=== PATIENT | female | born 1985 | race Caucasian/White ===

== ENCOUNTER 2017-01-28 19:48 | Emergency (ER) | payer OTHER ==
--- NOTE | 2017-01-28 20:47 | ER Document Report ---
ED Medical Screen (RME) - General Mode of Arrival: Ambulatory Information source: Patient TRAVEL OUTSIDE OF THE [place] IN LAST 30 DAYS: No <TACO PAREDES - Last Filed: 01/28/17 20:52> <NAMRATA BROCK - Last Filed: 01/28/17 21:08> <MARIAM TAYLOR - Last Filed: 01/28/17 21:10> - General Chief Complaint: Swelling of Lower Extremity Stated Complaint: LEFT LEG SWELLING Time Seen by Provider: 01/28/17 20:06 Notes: Patient is a 31 year old female with a history of SVT and blood clots reports to the emergency complaining of bilateral leg swelling. Patient states she had a recent noticeable episode of SVT. Patient also states that she is having sharp back pain. Patient states that she has recently taken a road trip to [place]. I have greeted and performed a rapid initial assessment of this patient. A comprehensive ED assessment and evaluation of the patient, analysis of test results and completion of the medical decision making process will be conducted by additional ED providers. (TACO PAREDES) - Related Data Allergies/Adverse Reactions: metronidazole [From Flagyl] Adverse Reaction (Intermediate, Verified 09/17/12 16 :08) rash Metronidazole HCl [From Flagyl] Adverse Reaction (Intermediate, Verified 16:08) rash cillins Allergy (Severe, Uncoded 09/17/12 16:08) swelling Past Medical History - Social History Chew tobacco use (# tins/day): No Frequency of alcohol use: None Drug Abuse: None Renal/ Medical History: Reports: Hx Ovarian Cysts. Denies: Hx Peritoneal Dialysis Past Surgical History: Reports: Hx Cholecystectomy, Hx Gynecologic Surgery - L oopherectomy --due to cyst 11.5 cm with ovarian torsion - Immunizations Immunizations up to date: Yes Hx Diphtheria, Pertussis, Tetanus Vaccination: Yes <TACO PAREDES - Last Filed: 01/28/17 20:52> - Past Medical History Cardiac Medical History: Reports: Hx DVT Denies: Hx Pulmonary Embolism <MARIAM TAYLOR - Last Filed: 01/28/17 21:10> Physical Exam <TACO PAREDES - Last Filed: 01/28/17 20:52> <NAMRATA BROCK - Last Filed: 01/28/17 21:08> <MARIAM TAYLOR - Last Filed: 01/28/17 21:10> - Vital signs Vitals: Temp Pulse Resp BP Pulse Ox 98.8 F 94 20 139/100 H 100 01/28/17 20:00 01/28/17 20:00 01/28/17 20:00 01/28/17 20:00 01/28/17 20:00 - Notes Notes: GENERAL: Alert, interacts well. No acute distress. LUNGS: Clear to auscultation bilaterally, no wheezes, rales, or rhonchi. No respiratory distress. HEART: Regular rate and rhythm. No murmurs, gallops, or rubs. EXTREMITIES: Left leg has 1+ pitting edema and is more swollen than the right. No exudate. (TACO PAREDES) Course - Laboratory Result Diagrams: 01/28/17 20:15 01/28/17 20:15 <TACO PAREDES - Last Filed: 01/28/17 20:52> - Laboratory Result Diagrams: 01/28/17 20:15 01/28/17 20:15 <NAMRATA BROCK - Last Filed: 01/28/17 21:08> - Laboratory Result Diagrams: 01/28/17 20:15 01/28/17 20:15 <MARIAM TAYLOR - Last Filed: 01/28/17 21:10> - Vital Signs Vital signs: Temp Pulse Resp BP Pulse Ox 98.8 F 94 20 139/100 H 100 01/28/17 20:00 01/28/17 20:00 01/28/17 20:00 01/28/17 20:00 01/28/17 20:00 - Laboratory Laboratory results interpreted by me: 01/28/17 20:15 Urine Blood LARGE H Ur Leukocyte Esterase TRACE H Scribe Documentation - Scribe Written by Sharad:: Sharad Hinson, 01/28/2017 20:55 acting as scribe for :: Sruthi <TCAO PAREDES - Last Filed: 01/28/17 20:52>
[2017-01-28 21:00] LABS: ABSOLUTE BASOPHILS # (AUTO) 0.1 10^3/uL (0.0-0.2); ABSOLUTE EOSINOPHILS # (AUTO) 0.3 10^3/uL (0.0-0.6); ABSOLUTE LYMPHOCYTES (AUTO) 3.5 10^3/uL (0.5-4.7); ABSOLUTE MONOCYTES (AUTO) 0.5 10^3/uL (0.1-1.4); ABSOLUTE NEUT (AUTO) 5.4 10^3/uL (1.7-8.2); BASOPHILS % (AUTO) 0.5 % (0-2); EOSINOPHILS % (AUTO) 2.8 % (0-6); HEMATOCRIT 36.9 % (36.0-47.0); HEMOGLOBIN 12.2 g/dL (12.0-15.5); HGB HCT DIFFERENCE -0.3; LYMPHOCYTES % (AUTO) 35.4 % (13-45); MEAN CORPUSCULAR HEMOGLOBIN 27.3 pg (27.0-33.4); MEAN CORPUSCULAR HGB CONC 33.2 g/dL (32.0-36.0); MEAN CORPUSCULAR VOLUME 82 fl (80-97); MONOCYTES % (AUTO) 5.6 % (3-13); RED BLOOD COUNT 4.47 10^6/uL (3.72-5.28); RED CELL DISTRIBUTION WIDTH 14.3 % (11.5-14.0); SEGMENTED NEUTROPHILS % (AUTO) 55.7 % (42-78); WHITE BLOOD COUNT 9.8 10^3/uL (4.0-10.5)
[2017-01-28 21:08] LABS: APPEARANCE,URINE SLIGHTLY-CLOUDY; BILIRUBIN,URINE NEGATIVE (NEGATIVE); GLUCOSE, URINE NEGATIVE (NEGATIVE); KETONES,URINE NEGATIVE (NEGATIVE); LEUKOCYTE ESTERASE,URINE TRACE (NEGATIVE); NITRITE,URINE NEGATIVE (NEGATIVE); PROTEIN,URINE NEGATIVE (NEGATIVE); URINE SPECIFIC GRAVITY 1.019; UROBILINOGEN,URINE NEGATIVE mg/dL (<2.0)
[2017-01-28 21:16] LABS: PROTHROMBIN TIME 11.5 SEC (11.4-15.4)
[2017-01-28 21:18] LABS: ALANINE AMINOTRANSFERASE 59 U/L (9-52); ALKALINE PHOSPHATASE 101 U/L (38-126); ANION GAP 11 (5-19); ASPARTATE AMINO TRANSFERASE 32 U/L (14-36); BILIRUBIN,DIRECT 0.1 mg/dL (0.0-0.4); BILIRUBIN,TOTAL 0.1 mg/dL (0.2-1.3); BLOOD UREA NITROGEN 7 mg/dL (7-20); CALCIUM 9.5 mg/dL (8.4-10.2); CARBON DIOXIDE 26 mmol/L (22-30); CHLORIDE 103 mmol/L (98-107); CREATININE RESULT 0.81 mg/dL (0.52-1.25); GLUCOSE 92 mg/dL (75-110); POTASSIUM 3.9 mmol/L (3.6-5.0); SODIUM 139.9 mmol/L (137-145); TOTAL PROTEIN 6.6 g/dL (6.3-8.2)
--- NOTE | 2017-01-28 21:20 | RADIOLOGY REPORT (SQ) ---
EXAM DESCRIPTION: CTA CHEST COMPLETED DATE/TIME: 01/28/2017 8:53 pm REASON FOR STUDY: SOB, h/o DVT, chest pain, recent [address] COMPARISON: None. TECHNIQUE: CT scan of the chest performed using helical scanning technique with dynamic intravenous contrast injection. Images reviewed with lung, soft tissue and bone windows. Reconstructed coronal and sagittal MPR images reviewed. Additional 3 dimensional post-processing performed to develop Maximal Intensity Projection images (VA P). All images stored on PACS. All CT scanners at this facility use dose modulation, iterative reconstruction, and/or weight based d osing when appropriate to reduce radiation dose to as low as reasonably achievable (ALARA). [facility]: Dose Right [facility]: CareDose [facility]: Dose Right [facility]: Teradose 4D [facility]: NaHere CONTRAST TYPE AND DOSE: contrast/concentration: Isovue 370.00 mg/ml; Total Contrast Delivered: 80.0 ml; Total Saline Delivered: 50.0 ml Contrast bolus optimized for the pulmonary arteries. Not diagnostic for the aorta. RENAL FUNCTION: None required. The patient is less than 50 years old. RADIATION DOSE: CT Rad equipment meets quality standard of care and radiation dose reduction techniq ues were employed. CTDIvol: 9.9 - 18.6 mGy. DLP: 749 mGy-cm. . LIMITATIONS: None. FINDINGS: LUNGS AND PLEURA: No masses, infiltrates, pneumothorax. No pleural effusions, calcificati ons. AORTA AND GREAT VESSELS: No aneurysm. Contrast bolus not optimized for the aorta. HEART: No pericardial effusion. No significant coronary artery calcifications. PULMONARY ARTERIES: No emboli visualized in the main pulmonary arteries or the segmental branches. HILAR AND MEDIASTINAL STRUCTURES: No identified masses or abnormal nodes. HARDWARE: None in the chest. UPPER ABDOMEN: No significant findings. Limited exam. THYROID AND OTHER SOFT TISSUES: No masses. No adenopathy. BONES: No acute or significant finding. 3D MIPS: Confirm above findings. OTHER: No other significant finding. IMPRESSION: NORMAL CTA OF THE CHEST. NO PULMONARY EMBOLI. COMMENT: Quality ID # [id number]: Final reports with documentation of one or more dose reduction techniques (e.g., Automated exposure control, adjustment of the mA and/or kV according to patient size, use of iterative reconstruction technique) TECHNICAL DOCUMENTATION: JOB ID: [id number] [place]-72 2010 [employer]- All Rights Reserved
--- NOTE | 2017-01-28 21:24 | ER Document Report ---
ED Extremity Problem, Lower - General Mode of Arrival: Ambulatory Information source: Patient TRAVEL OUTSIDE OF THE [place] IN LAST 30 DAYS: No - HPI Patient complains to provider of: Swelling Location: Leg - bilateral Occurred: This evening Associated symptoms: Other - see notes above <SEBLE FLORES - Last Filed: 01/28/17 21:29> <NAMRATA BROCK - Last Filed: 01/28/17 22:21> - General Chief Complaint: Swelling of Lower Extremity Stated Complaint: LEFT LEG SWELLING Time Seen by Provider: 01/28/17 20:06 Notes: 31 year old female with history of SVT presents to the ED complaining of bilateral leg swelling and sharp left scapular pain which wraps to the front that started earlier today. 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 Patient reports that she had an episode of left leg swelling 'many years ago' [facility]. Patient was on control at the time and is currently still on control. Patient states that she was in the hospital for 2 days and reports that the clot "passed" and was discharged home with ibuprofen and no blood thinning medications. Patient reports to having frequent unnoticeable SVT episodes, but states that she has had 3 noticeable episodes recently. Patient is additionally complaining of left leg numbness and tingling. Patient reports that she feels like stretching will help the scapular pain, but when she does she achieves no relief. No relief with breathing either. Patient states that her scapular pain is better than earlier, but still is uncomfortable. Patient is on 100 mg Atenolol daily and takes Metoprolol as needed. (SEBLE FLORES) - Related Data Allergies/Adverse Reactions: metronidazole [From Flagyl] Adverse Reaction (Intermediate, Verified 09/17/12 16 :08) rash Metronidazole HCl [From Flagyl] Adverse Reaction (Intermediate, Verified 16:08) rash cillins Allergy (Severe, Uncoded 09/17/12 16:08) swelling Past Medical History - General Information source: Patient - Social History Smoking Status: Never Smoker Chew tobacco use (# tins/day): No Frequency of alcohol use: None Drug Abuse: None Family History: Reviewed & Not Pertinent Patient has suicidal ideation: No Patient has homicidal ideation: No - Past Medical History Cardiac Medical History: Reports: Other - SVT Renal/ Medical History: Reports: Hx Ovarian Cysts. Denies: Hx Peritoneal Dialysis Past Surgical History: Reports: Hx Cholecystectomy, Hx Gynecologic Surgery - L oopherectomy --due to cyst 11.5 cm with ovarian torsion - Immunizations Immunizations up to date: Yes Hx Diphtheria, Pertussis, Tetanus Vaccination: Yes <SEBLE FLORES - Last Filed: 01/28/17 21:29> Review of Systems - Review of Systems Constitutional: No symptoms reported EENT: No symptoms reported Cardiovascular: No symptoms reported Respiratory: No symptoms reported Gastrointestinal: No symptoms reported Genitourinary: No symptoms reported Female Genitourinary: No symptoms reported Musculoskeletal: See HPI, Back pain - left scapular pain, Leg swelling - bilateral, Ankle swelling - bilateral Skin: No symptoms reported Hematologic/Lymphatic: No symptoms reported Neurological/Psychological: No symptoms reported -: Yes All other systems reviewed and negative <SEBLE FLORES - Last Filed: 01/28/17 21:29> Physical Exam - General General appearance: Alert In distress: None - HEENT Head: Normocephalic, Atraumatic Eyes: Normal Extraocular movements intact: Yes Pupils: PERRL - Respiratory Respiratory status: No respiratory distress Breath sounds: Normal - Cardiovascular Rhythm: Regular Heart sounds: Normal auscultation - Abdominal Inspection: Obese - Back Back: Normal, Nontender - Left scapular muscles and medial edge of scapula does not reproduce the patient's pain. - Extremities General upper extremity: Normal inspection, Normal strength General lower extremity: Edema - bilateral lower extremities including ankles, Other - calf non-tender. No: Normal inspection Calf: Normal - not firm, Nontender - Neurological Neuro grossly intact: Yes - Psychological Associated symptoms: Normal affect, Normal mood - Skin Skin Temperature: Warm Skin Moisture: Dry Skin Color: Normal <SEBLE FLORES - Last Filed: 01/28/17 21:29> - Vital signs Vitals: Temp Pulse Resp BP Pulse Ox 98.8 F 94 20 139/100 H 100 01/28/17 20:00 01/28/17 20:00 01/28/17 20:00 01/28/17 20:00 01/28/17 20:00 Course - Laboratory Result Diagrams: 01/28/17 20:15 01/28/17 20:15 <SEBLE FLORES - Last Filed: 01/28/17 21:29> - Laboratory Result Diagrams: 01/28/17 20:15 01/28/17 20:15 - Diagnostic Test Radiology reviewed: Image reviewed, Reports reviewed - CTA of the chest is negative for pulmonary emboli. Bilateral venous Dopplers are negative for DVT. - EKG Interpretation by Me EKG shows normal: Sinus rhythm, [place], Intervals, QRS Complexes, ST-T Waves Rate: Normal - 89 Rhythm: NSR [place]/QRS: Left axis deviation When compared to previous EKG there are: Previous EKG unavailable <NAMRATA BROCK - Last Filed: 01/28/17 22:21> - Vital Signs Vital signs: Temp Pulse Resp BP Pulse Ox 98.8 F 86 20 139/100 H 100 01/28/17 20:00 01/28/17 21:30 01/28/17 20:00 01/28/17 20:00 01/28/17 20:00 - Laboratory Laboratory results interpreted by me: 01/28/17 01/28/17 01/28/17 20:15 20:15 20:15 RDW 14.3 H Total Bilirubin 0.1 L ALT 59 H Urine Blood LARGE H Ur Leukocyte Esterase TRACE H Discharge <SEBLE FLORES - Last Filed: 01/28/17 21:29> <NAMRATA BROCK - Last Filed: 01/28/17 22:21> - Discharge Clinical Impression: Bilateral lower extremity edema Condition: Stable Disposition: HOME, SELF-CARE Additional Instructions: Edema, Peripheral: You have swelling in your legs. This is called peripheral edema. It can be caused by "leaky capillaries," inflammation, disease of the leg veins, or excess salt and water in your body. Edema may be a sign of heart, kidney, or liver disease. A medical evaluation can determine if there is a serious underlying cause for your edema. Avoid prolonged standing. If you must sit for a long time, occasionally get up and walk around or elevate your legs. Support stockings can be helpful in limiting swelling. Often diuretic or water pills are used to remove excess salt and water from your body. Call the doctor or return if you develop increased swelling, pain, or redness, shortness of breath, chest pain, or any other significant change. //////////////////////////////////////////////////////////////////////////////// //////////////////////////////////////////////////////////////////////////////// /////////////////// The swelling of your legs and ankles is called dependent edema. It is most likely caused by the long car trip he took for you keep your knees bent for prolonged periods of time. The knees being bit like this put pressure on the veins returning from your lower legs and impeded the return of blood to the heart. This results in the swelling you are experiencing now per We will give you a small dose of a diuretic for this evening. You should elevate your feet above your heart is much as possible for the next few days. Limit standing for prolonged periods of time without walking. Avoid sitting with your knees bent for the next few days. Limit sodium or salt intake in your diet. Follow-up with local medical doctor if not improving. RETURN TO THE EMERGENCY ROOM IF ANY NEW OR WORSENING SYMPTOMS. Scribe Attestation: 01/28/17 22:10 I personally performed the services described in the documentation, reviewed and edited the documentation which was dictated to the scribe in my presence, and it accurately records my words and actions. (NAMRATA BROCK) Scribe Documentation - Scribe Written by Sharad:: Sharad Jay, [id number] acting as scribe for :: George <SEBLE FLORES - Last Filed: 01/28/17 21:29>
[2017-01-28] MEDS ORDERED: FUROSEMIDE 20 MG TABLET PO ONE (22:22)
[2017-01-28] MEDS ORDERED: POTASSIUM CHLORIDE 10 MEQ TABLET.SA PO ONE (22:22)
[2017-01-28 23:05] VITALS: BP 131/85
--- NOTE | 2017-01-29 07:54 | EKG REPORT ---
SEVERITY:- OTHERWISE NORMAL ECG - SINUS RHYTHM LEFT AXIS DEVIATION : Confirmed by: Veto Younger MD 29-Jan-2017 07:53:51
--- NOTE | 2017-01-29 13:15 | XCELERA REPORT ---
[address] [address] Lower Extremity Venous Evaluation Name: СЕРГЕЙ CHADWICK Age: 31 yrs Gender: Female : 1985 Patient Status: Emergency Patient Location: ER Study Date: 01/28/2017 10:02 PM Procedure: Color flow and duplex imaging of the veins of the left lower extremity as well as the right Common Femoral vein. Reason For Study: left leg swelling, h/o DVT, recent [address] Ordering Physician: MARIAM TAYLOR Performed By: Omaira Joyce Right Sided Venous Evaluation The right common femoral vein is fully compressible. Spontaneous and phasic flow is present in the right common femoral vein. Left Sided Venous Evaluation Normal vessel filling wall to wall, compression and augmentation as well as Colour flow down to the infrageniculate veins. Interpretation Summary No duplex evidence of DVT or obstruction in the left lower extremity nor in the right Common Femoral vein. : MARIAM TAYLOR > Tobin Carrillo
== END 2017-01-28 22:57 | disposition home or self-care (01) ==
LOC: ER 19:48
DX: R60.0 Localized edema (principal); I47.1 Supraventricular tachycardia; M79.89 Other specified soft tissue disorders; M25.512 Pain in left shoulder; R20.0 Anesthesia of skin
CPT/HCPCS: 36415; 71275; 80053; 81001; 84703; 85025; 85379; 85610; 93005; 93010; 93971; 99284